=== PATIENT | female | born 1960 | race Caucasian/White ===

== ENCOUNTER → 2024-06-21 | Outpatient (CLI) | payer OTHER, SELFPAY ==
--- NOTE | 2024-06-21 12:39 | RAD_ITS ---
STUDY: X-RAY CHEST REASON FOR EXAM: Female, 63 years old. Abnormal lung function tests. TECHNIQUE: Frontal and lateral views of the chest. COMPARISON: None. FINDINGS: Mild hyperinflation. There is no demonstrated pleural abnormality. Borderline cardiomegaly. Normal mediastinum and chung. Normal visualized pulmonary arteries. Mild aortic tortuosity. Normal visualized thoracic spine. Normal visualized ribs, clavicles, and shoulders. No abnormality of the visualized soft tissue structures of the upper abdomen. RAD/Chest PA and Lateral IMPRESSION: Borderline cardiomegaly with hyperinflation and no acute finding Electronically Signed: Charlie Luke MD at 13:24 EDT ,
--- NOTE | 2024-06-21 12:42 | RAD_ITS ---
STUDY: X-RAY - PELVIS AND RIGHT HIP REASON FOR EXAM: Female, 63 years old. Right hip weight bearing - Right groin pain. TECHNIQUE: 3 views of the pelvis and right hip. COMPARISON: None. FINDINGS: There is a non-specific bowel gas pattern. Normal visualized soft tissue structures. Normal bilateral iliac wings, sacroiliac joints and visualized sacrum. Normal bilateral superior and inferior pubic rami. Normal pubic symphysis. Normal bilateral ischial tuberosities. Normal visualized femoral head. Normal acetabulum. Normal hip joint. RAD/HIP, UNI W/ Pelvis 2-3 Views IMPRESSION: Normal x-ray examination of the pelvis and right hip. Electronically Signed: Fernando Anders MD at 15:24 EDT ,
--- NOTE | 2024-06-21 12:45 | RAD_ITS ---
STUDY: X-RAY - LUMBAR SPINE REASON FOR EXAM: Female, 63 years old. Right groin pain. TECHNIQUE: 2 view(s) of the lumbar spine were obtained. COMPARISON: None FINDINGS: Osteopenia. Normal lumbar lordosis. Mild dextroscoliosis of the upper lower thoracic and upper lumbar spine. Normal vertebral alignment. Mild. Lower thoracic and lumbosacral facet sclerosis. Intervertebral disc space narrowing with osteophytes most marked at L2-3, L3-4 and L5-S1. Minimal vascular calcification. RAD/Lumbar Spine 2 or 3 Views IMPRESSION: Osteopenia with disuse lower thoracic and lumbosacral spondylosis most marked at L2-3, L3-4 and L5-S1. No acute abnormality or erosive changes. Electronically Signed: Charlie Luke MD at 13:28 EDT ,
== END | disposition home or self-care (01) ==
LOC: MTRAD 12:39
PROVIDERS: PCP Internal Medicine; Referring Provider Internal Medicine; Visit Provider Internal Medicine
DX: R94.2 Abnormal results of pulmonary function studies (principal); R10.31 Right lower quadrant pain
CPT/HCPCS: 71046; 72100; 73502